=== PATIENT | female | born 1990 | race Two or more races ===

== ENCOUNTER 2021-08-06 23:09 | Emergency (ER) | payer OTHER ==
[~2021-08-06] VITALS: Ht 160 cm; Wt 74.8 kg
== END 2021-08-07 04:00 ==
LOC: ER 23:09
DX: O26.891 Other specified pregnancy related conditions, first trimester (principal); Z3A.13 13 weeks gestation of pregnancy

== ENCOUNTER 2021-09-22 08:59 | Outpatient (CLI) | payer OTHER | END 2021-09-22 10:20 | disposition home or self-care (01) | LOC: PRENATAL 08:59 | PROVIDERS: ATTEND Obstetrics & Gynecology Maternal & Fetal Medicine | DX: O35.0XX1 Maternal care for (suspected) central nervous system malformation in fetus, fetus 1 (principal); O35.3XX1 Maternal care for (suspected) damage to fetus from viral disease in mother, fetus 1; O98.512 Other viral diseases complicating pregnancy, second trimester; Z36.89 Encounter for other specified antenatal screening; Z3A.19 19 weeks gestation of pregnancy ==

== ENCOUNTER 2021-12-18 09:04 | Outpatient (CLI) | payer OTHER | END 2021-12-18 09:35 | disposition home or self-care (01) | LOC: PRENATAL 09:04 | PROVIDERS: ATTEND Obstetrics & Gynecology Maternal & Fetal Medicine | DX: O26.849 Uterine size-date discrepancy, unspecified trimester (principal); O35.0XX0 Maternal care for (suspected) central nervous system malformation in fetus, not applicable or unspecified ==

== ENCOUNTER 2022-02-04 05:18 | Inpatient (IN) | payer OTHER ==
[~2022-02-04] VITALS: Ht 160 cm; Wt 83.9 kg
[2022-02-04] MEDS ORDERED: CHILDREN'S ASPI81 MG PO (06:02)
[2022-02-04] MEDS ORDERED: PRENATAL TABLE1 EAC1 PO (06:02)
== END 2022-02-06 13:43 | disposition home or self-care (01) | DRG 807 ==
LOC: LDR 05:18 → OB/GYN 05:18
PROVIDERS: ADMIT Student in an Organized Health Care Education/Training Program; ATTEND Student in an Organized Health Care Education/Training Program
PROC: 10E0XZZ Delivery of Products of Conception, External Approach (ICD-10-PCS; principal; 2022-02-04)
PROC: 0KQM0ZZ Repair Perineum Muscle, Open Approach (ICD-10-PCS; 2022-02-04)
PROC: 4A1HXCZ Monitoring of Products of Conception, Cardiac Rate, External Approach (ICD-10-PCS; 2022-02-04)
DX: O70.1 Second degree perineal laceration during delivery (principal); Z37.0 Single live birth; Z3A.39 39 weeks gestation of pregnancy; Z20.822 Contact with and (suspected) exposure to COVID-19

== ENCOUNTER 2024-12-14 16:08 | Outpatient (CLI) | payer OTHER ==
[~2024-12-14 16:08] MED LIST: CHILDREN'S ASPI81 MG PO; PRENATAL TABLE1 EAC1 PO
== END 2024-12-14 16:09 | disposition home or self-care (01) ==
LOC: PRENATAL 16:08
PROVIDERS: ATTEND Obstetrics & Gynecology Maternal & Fetal Medicine
DX: O36.80X0 Pregnancy with inconclusive fetal viability, not applicable or unspecified (principal); Z36.82 Encounter for antenatal screening for nuchal translucency; Z14.8 Genetic carrier of other disease; Z3A.12 12 weeks gestation of pregnancy

== ENCOUNTER 2025-02-07 12:08 | Outpatient (CLI) | payer OTHER | END 2025-02-07 12:13 | disposition home or self-care (01) | LOC: PRENATAL 12:08 | PROVIDERS: ATTEND Obstetrics & Gynecology Maternal & Fetal Medicine | DX: O44.00 Complete placenta previa NOS or without hemorrhage, unspecified trimester (principal); O36.1999 Maternal care for other isoimmunization, unspecified trimester, other fetus; O09.529 Supervision of elderly multigravida, unspecified trimester; Z3A.20 20 weeks gestation of pregnancy ==

== ENCOUNTER → 2025-04-04 12:07 | Outpatient (CLI) | payer OTHER | END | disposition home or self-care (01) | LOC: PRENATAL 12:07 | PROVIDERS: ATTEND Obstetrics & Gynecology Maternal & Fetal Medicine | DX: O26.849 Uterine size-date discrepancy, unspecified trimester (principal); O36.8199 Decreased fetal movements, unspecified trimester, other fetus; O09.529 Supervision of elderly multigravida, unspecified trimester; Z3A.27 27 weeks gestation of pregnancy ==

== ENCOUNTER 2025-05-16 13:45 | Outpatient (CLI) | payer OTHER | END 2025-05-16 13:46 | disposition home or self-care (01) | LOC: PRENATAL 13:45 | PROVIDERS: ATTEND Obstetrics & Gynecology Maternal & Fetal Medicine | DX: O26.849 Uterine size-date discrepancy, unspecified trimester (principal); O36.8199 Decreased fetal movements, unspecified trimester, other fetus; O36.1999 Maternal care for other isoimmunization, unspecified trimester, other fetus; O09.529 Supervision of elderly multigravida, unspecified trimester; Z3A.34 34 weeks gestation of pregnancy ==

== ENCOUNTER 2025-05-31 13:37 | Outpatient (CLI) | payer OTHER ==
[~2025-05-31] VITALS: Ht 160 cm; Wt 79.8 kg
[2025-05-31 14:20] VITALS: BP 111/72
[2025-05-31] MEDS ORDERED: RINGERS SOLUTION,LACTATED 1,000 ML IV SCH (15:00)
[2025-05-31 16:10] LABS: BASO % 0.4 % (0.1-1.2); EOS # 0.09 (0.04-0.54); EOS % 0.7 % (0.7-7.0); LYMPH # 2.09 (1.18-3.74); LYMPH % 15.3 % (19.3-53.1); MEAN PLATELET VOLUME 10.40 fl (9.4-12.4); MONO # 1.24 (0.24-0.82); MONO % 9.1 % (4.7-12.5); NEUT # 9.99 (1.56-6.13); NEUT % 72.8 % (34.0-71.1); RED CELL DISTRIBUTION WIDTH 13.4 % (11.6-14.4)
[2025-05-31] MEDS ORDERED: BETAMETHASONE ACETATE,SOD PHOS 30 MG/5 ML ML ONE (16:38)
[2025-05-31] MEDS ORDERED: BETAMETHASONE ACETATE,SOD PHOS 30 MG/5 ML ML IM SCH (17:15)
[2025-05-31 21:05] VITALS: BP 91/55
[2025-05-31 23:24] VITALS: BP 90/60
[2025-06-01 02:56] VITALS: BP 100/66
[2025-06-01 06:37] VITALS: BP 95/58; O2SAT 98
[2025-06-01 12:21] VITALS: BP 99/50; O2SAT 99
[2025-06-01 14:32] VITALS: BP 99/50
[2025-06-01] MEDS ORDERED: BETAMETHASONE ACETATE,SOD PHOS 30 MG/5 ML ML IM SCH (17:00)
== END 2025-06-01 14:30 | disposition home or self-care (01) ==
LOC: OBS/DEL 13:37
PROVIDERS: ATTEND Student in an Organized Health Care Education/Training Program
DX: O36.8130 Decreased fetal movements, third trimester, not applicable or unspecified (principal); O36.1999 Maternal care for other isoimmunization, unspecified trimester, other fetus; O09.529 Supervision of elderly multigravida, unspecified trimester; Z3A.36 36 weeks gestation of pregnancy

== ENCOUNTER 2025-06-05 08:07 | Outpatient (CLI) | payer OTHER | END 2025-06-05 08:08 | disposition home or self-care (01) | LOC: PRENATAL 08:07 | PROVIDERS: ATTEND Obstetrics & Gynecology Maternal & Fetal Medicine | DX: O26.849 Uterine size-date discrepancy, unspecified trimester (principal); O36.8199 Decreased fetal movements, unspecified trimester, other fetus; Z3A.36 36 weeks gestation of pregnancy ==

== ENCOUNTER 2025-06-17 13:16 | Outpatient (CLI) | payer OTHER | END 2025-06-17 13:50 | disposition home or self-care (01) | LOC: NST 13:16 | PROVIDERS: ATTEND Student in an Organized Health Care Education/Training Program | DX: Z34.83 Encounter for supervision of other normal pregnancy, third trimester (principal) ==

== ENCOUNTER 2025-06-17 23:21 | Inpatient (IN) | payer OTHER ==
[~2025-06-17] VITALS: Ht 160 cm; Wt 81.2 kg
[2025-06-17 22:49] VITALS: BP 121/78
[2025-06-17 23:11] VITALS: BP 114/68; BP 121/78
[2025-06-17] MEDS ORDERED: ONDANSETRON HCL 2 MG/ML VIAL IV ONE (23:45)
[2025-06-17] MEDS ORDERED: RINGERS SOLUTION,LACTATED 1,000 ML IV SCH (23:45)
[2025-06-18] VITALS (9 sets, daily range): BP systolic 100–120; BP diastolic 61–71
[2025-06-18] MEDS ORDERED: MORPHINE SULFATE 4 MG/ML VIAL IV ONE (00:15)
[2025-06-18 00:28] LABS: BASO % 0.4 % (0.1-1.2); EOS # 0.04 (0.04-0.54); EOS % 0.3 % (0.7-7.0); LYMPH # 1.86 (1.18-3.74); LYMPH % 12.0 % (19.3-53.1); MEAN PLATELET VOLUME 10.90 fl (9.4-12.4); MONO # 1.19 (0.24-0.82); MONO % 7.7 % (4.7-12.5); NEUT # 12.21 (1.56-6.13); NEUT % 78.8 % (34.0-71.1); RED CELL DISTRIBUTION WIDTH 13.9 % (11.6-14.4)
[2025-06-18 00:29] LABS: URINE APPEARANCE Clear; URINE BILIRRUBIN Negative (NEGATIVE); URINE BLOOD Negative; URINE COLOR Yellow; URINE GLUCOSE Negative (NEGATIVE); URINE LEUKOCYTE Negative; URINE NITRATE Negative; URINE PROTEIN Trace (NEGATIVE); URINE UROBILINOGEN 0.2 E.U./dl
[2025-06-18 00:32] LABS: URINE BACTERIA 764.2 uL (0.0-1933); URINE EPITHELIAL CELLS 58.4 uL (0.0-38.8); URINE RBC 3.3 uL (0.0-20.8); URINE WBC 7.6 uL (0.0-23.2)
[2025-06-18 00:34] LABS: URINE CAST 0.14 uL (0.0-1.40); URINE KETONE 40 (NEGATIVE)
[2025-06-18 00:43] LABS: INR < 0.93
[2025-06-18 00:47] LABS: ALT/SGPT 15.0 U/L (12-78); AST/SGOT 17.0 U/L (15-37); BILIRUBIN TOTAL 0.94 mg/dL (0.3-1.2); BUN CREA RATIO 15.0 (7.0-25.0); CREATININE SERUM 0.66 mg/dL (0.55-1.02); GFR 101.91; GLOBULINA 3.5 G/DL (2.4-3.5); GLUCOSE FASTING 75.0 mg/dL (65-100); OSMOLALITY SERUM 275.0 MOSM/KG (275-295)
[2025-06-18] MEDS ORDERED: OXYTOCIN 1,000 ML IV SCH (02:30)
[2025-06-18] MEDS ORDERED: ACETAMINOPHEN 500 MG GEL..CAP PO PRN (02:30)
[2025-06-18] MEDS ORDERED: CHLORHEXIDINE GLUCONATE 120 ML BOTTLE TOP SCH (02:30)
[2025-06-18] MEDS ORDERED: ERYTHROMYCIN BASE OPHT 1GM EACH TUBE OP ONE (02:45)
[2025-06-18] MEDS ORDERED: DOCUSATE SODIUM 100MG CAP PO SCH (09:00)
[2025-06-18 12:25] LABS: BASO % 0.2 % (0.1-1.2); EOS # 0.06 (0.04-0.54); EOS % 0.4 % (0.7-7.0); LYMPH # 1.85 (1.18-3.74); LYMPH % 11.4 % (19.3-53.1); MEAN PLATELET VOLUME 10.60 fl (9.4-12.4); MONO # 1.44 (0.24-0.82); MONO % 8.9 % (4.7-12.5); NEUT # 12.66 (1.56-6.13); NEUT % 78.2 % (34.0-71.1); RED CELL DISTRIBUTION WIDTH 14.1 % (11.6-14.4)
[2025-06-19] VITALS: BP 93/56
[2025-06-19 08:09] VITALS: BP 96/60
[2025-06-19 13:00] VITALS: BP 95/62
[2025-06-19 16:02] VITALS: BP 103/67
[2025-06-20 01:31] VITALS: BP 100/60
[2025-06-20 08:19] VITALS: BP 95/61
== END 2025-06-20 13:44 | disposition home or self-care (01) | DRG 807 ==
LOC: LDR 23:21 → OB/GYN 23:21 → LDR 06-18 00:41 → OB/GYN 06-18 03:54
PROVIDERS: ADMIT General Practice; ATTEND General Practice
PROC: 4A1HXCZ Monitoring of Products of Conception, Cardiac Rate, External Approach (ICD-10-PCS; 2025-06-17)
PROC: 10E0XZZ Delivery of Products of Conception, External Approach (ICD-10-PCS; principal; 2025-06-18)
DX: O80 Encounter for full-term uncomplicated delivery (principal); Z37.0 Single live birth; Z3A.38 38 weeks gestation of pregnancy